=== PATIENT | male | born 1965 ===

== ENCOUNTER → 2020-03-28 08:41 | Outpatient (CLI) | payer BC, SELFPAY ==
[2020-03-28 09:09] LABS: Basophils % 0.6 % (0.1-2.0); Eosinophils # 0.5 K/mm3 (0.0-0.4); Eosinophils % 6.5 % (0.1-12.0); Hematocrit 33.7 % (42.0-52.0); Hemoglobin 10.8 g/dL (14.1-18.0); Lymphocytes # 0.8 K/mm3 (0.7-4.5); Lymphocytes % 11.1 % (10-50); Mean Corpuscular HGB Conc 31.9 g/dL (31.8-35.4); Mean Corpuscular Volume 87.8 fl (80-94); Mean Platelet Volume 7.9 fl (7.4-10.4); Monocytes # 0.7 K/mm3 (0.1-1.0); Monocytes % 9.7 % (1.7-9.3); Neutrophils % 72.1 % (37.0-80.0); Platelet Count 277 K/mm3 (142-424); Red Blood Count 3.84 M/mm3 (4.60-6.20); White Blood Count 6.9 K/mm3 (4.8-10.8)
[2020-03-28 10:03] LABS: Hemoglobin A1C 9.1 % (4.0-6.0)
[2020-03-28 12:20] LABS: Chloride 104 mmol/L (98-107); Potassium 4.1 mmoL/L (3.5-5.1); Sodium 137 mmol/L (136-145)
[2020-03-28 12:23] LABS: Alanine Aminotransferase 12 U/L (12-78); Albumin Level 3.5 g/dl (3.5-5.0); Albumin/Globulin Ratio 1.2 (1.1-1.8); Alkaline Phosphatase 210 U/L (38-126); Anion Gap 16.1 mEq/L (5-15); Aspartate Amino Transferase 18 U/L (17-59); Bilirubin,Total 0.4 mg/dl (0.2-1.3); Blood Urea Nitrogen 25 mg/dl (9-20); Carbon Dioxide 21 mmol/L (22.0-30.0); Cholesterol 112 mg/dl (140-200); Estimated Glomerular Filt Rate 63 ml/min (>60); GFR (African American) 77 ML/MIN (>60); Globulin 2.9 g/dL (1.3-3.2); Total Protein,Serum 6.4 g/dl (6.3-8.2); Triglycerides 103 mg/dl (30-150); VLDL Cholesterol 21 mg/dL (0-40)
[2020-03-28 12:24] LABS: Calcium 8.3 mg/dl (8.4-10.2); Chol/HDL Ratio 2.9 (1-3.5); Glucose 156 mg/dl (74-100); HDL Cholesterol 38 mg/dl (40-60)
[2020-03-28 12:35] LABS: Direct LDL Cholesterol 62.89 mg/dL (100-129)
== END ==
PROVIDERS: Visit Provider Emergency Medicine
DX: E11.65 Type 2 diabetes mellitus with hyperglycemia (principal)
CPT/HCPCS: 80053; 80061; 83036; 85025